=== PATIENT | female | born 1955 | race Caucasian/White ===

== ENCOUNTER 2017-08-24 09:37 | Inpatient (IN) | payer OTHER ==
[2017-08-24] VITALS (21 sets, daily range): BP systolic 98–132; BP diastolic 53–89; PULSE 59–88; RESP 13–28; Ht 165.1 cm; Wt 88.1 kg
[~2017-08-24] VITALS: Ht 165.1 cm; Wt 88.1 kg
[2017-08-24] MEDS ORDERED: HEPARIN 1000 UNITS/ML 10 ML INJ ONE (11:35)
[2017-08-24] MEDS ORDERED: BUPIVACAINE 0.5%/EPI (SDV) 30 ML INJ ONE (11:35)
[2017-08-24] MEDS ORDERED: THROMBIN 5000 UNIT VIAL ONE (11:35)
[2017-08-24] MEDS ORDERED: CA CHLORIDE 10% 10 ML SYRINGE ONE (11:35)
[2017-08-24] MEDS ORDERED: SURGIFOAM POWDER 1 GM KIT ONE (11:35)
[2017-08-24] MEDS ORDERED: CEFAZOLIN 1 GM INJ ONE ×2 (11:35→12:46)
--- NOTE | 2017-08-24 11:42 | HPN ---
Date/Time of Note Date/Time of Note DATE: 08/24/17 TIME: 11:42 Interval H&P Admission Note Pt. seen H&P reviewed: No system changes JASMYN PIEDRA MD Aug 24, 2017 11:42
[2017-08-24] MEDS ORDERED: MIDAZOLAM 1 MG/ML 2 ML INJ ONE (11:43)
[2017-08-24] MEDS ORDERED: ONDANSETRON 4 MG INJ IV PRN ×2 (12:00→13:00)
[2017-08-24] MEDS ORDERED: HYDROmorphONE 1 MG/ML SYG IV PRN ×2 (12:00→22:30)
[2017-08-24] MEDS ORDERED: ACETAMINOPHEN 325 MG TAB PO PRN (12:00)
[2017-08-24] MEDS ORDERED: AL HYDROX/MG HYDROX/SIMETH 30 ML CUP PO PRN (12:00)
[2017-08-24] MEDS ORDERED: BISACODYL 10 MG SUPP PR PRN (12:00)
[2017-08-24] MEDS ORDERED: HYDROmorphONE 0.2 MG/ML PCA IV SCH (12:00)
[2017-08-24] MEDS: CEFAZOLIN 1 GM/50 ML (PMX) 50 ML IVPB SCH ×2 (12:00→20:27)
[2017-08-24] MEDS ORDERED: DIPHENHYDRAMINE 25 MG CAP PO PRN (12:00)
[2017-08-24] MEDS ORDERED: DIPHENHYDRAMINE 50 MG INJ IV PRN ×2 (12:00→13:00)
[2017-08-24] MEDS ORDERED: CEPASTAT LOZENGE MT PRN (12:00)
[2017-08-24] MEDS ORDERED: NALOXONE (0.4 MG/ML) INJ IV PRN (12:00)
[2017-08-24] MEDS ORDERED: CYCLOBENZAPRINE 10 MG TAB PO PRN (12:00)
[2017-08-24] MEDS ORDERED: METOCLOPRAMIDE 10 MG INJ ONE (12:02)
[2017-08-24] MEDS ORDERED: FENTAnyl 50 MCG/ML VIAL ONE ×2 (12:02→13:50)
[2017-08-24] MEDS ORDERED: DEXAMETHASONE 4 MG/ML 1 ML INJ ONE (12:02)
[2017-08-24] MEDS ORDERED: SUCCINYLCHOLINE CHLORIDE 100 MG/5 ML SYG IV ONE (12:14)
[2017-08-24] MEDS ORDERED: PROPOFOL 20 ML ONE (12:14)
[2017-08-24] MEDS ORDERED: ROCURONIUM 50 MG INJ ONE ×2 (12:14→12:46)
[2017-08-24] MEDS ORDERED: HYDROmorphONE (0.2 MG/ML) 10ML SYG IV PRN ×3 (13:00)
[2017-08-24] MEDS ORDERED: MEPERIDINE 25 MG INJ IV PRN (13:00)
--- NOTE | 2017-08-24 13:02 | RADRPT ---
PROCEDURE: XR Lumbar Spine one view. CLINICAL INDICATION: Low back pain. Intraoperative. TECHNIQUE: Prone portable cross-table lateral. COMPARISON: No prior studies are available for comparison. FINDINGS: For the purposes of this report, the last apparent true disc level is considered to be L5-S1. Based on this, the posterior needle markers are present at the L3 spinous process level and upper S1 spin ous process level. IMPRESSION: 1. Intraoperative imaging as described above. RPTAT: QQ .Sarmad Campbell MD, Date Time Electronically viewed and signed by .Sarmad Campbell MD, on 08/24/2017 13:02 .R/
[2017-08-24] MEDS ORDERED: HYDROmorphONE 2 MG/ML SYG ONE (13:12)
--- NOTE | 2017-08-24 13:19 | RADRPT ---
PROCEDURE: XR Lumbar Spine one view. CLINICAL INDICATION: Low back pain. Intraoperative. TECHNIQUE: Prone portable cross-table lateral. COMPARISON: Prior study done earlier the same day. FINDINGS: For the purposes of this report, the last apparent true disc level is considered to be L5-S1. Based on this, the posterior surgical instruments are present at L4-5 and L5-S1. IMPRESSION: 1. Intraoperative imaging as described above. RPTAT: QQ .Sarmad Campbell MD, MD Date Time Electronically viewed and signed by .Sarmad Campbell MD, MD on 08/24/2017 13:18 .R/
[2017-08-24] MEDS ORDERED: BUPIVACAINE 0.25% (MPF) 10 ML 10 ML VIAL ONE (13:49)
[2017-08-24] MEDS ORDERED: NEOSTIGMINE 3 MG/3 ML SYRINGE ONE (14:21)
[2017-08-24] MEDS ORDERED: GLYCOPYRROLATE 0.4 MG INJ ONE (14:21)
--- NOTE | 2017-08-24 14:22 | SIPON ---
Date/Time of Note Date/Time of Note DATE: 08/24/17 TIME: 14:21 Operative Report Preoperative Diagnosis Lumbar stenosis Postoperative Diagnosis Lumbar stenosis Operation/Procedure Performed Lumbar decompression Surgeon see signature line pathology assistant Kimberley villatoro Anesthesia: general Estimated blood loss: 150 - 200 ml's Transfusion Required none Specimen spinous process Grafts/Implants none Complications none JASMYN PIEDRA MD Aug 24, 2017 14:22
[2017-08-24] MEDS ORDERED: HYDROmorphONE 0.2 MG/ML PCA ONE (14:23)
[2017-08-24] MEDS: 1/2 NS + KCL 20 MEQ 1,000 ML IV SCH ×2 (16:36→21:42)
--- NOTE | 2017-08-24 18:16 | OPR ---
DATE OF OPERATION: 08/24/2017 PREOPERATIVE DIAGNOSES: 1. L4-L5, L5-S1 stenosis. 2. Lumbosacral radiculopathy. POSTOPERATIVE DIAGNOSES: 1. L4-L5, L5-S1 stenosis. 2. Lumbosacral radiculopathy. OPERATIVE PROCEDURE: 1. Central decompressive laminectomy at L4-L5, L5-S1, decompression of L4, L5, S1 nerve roots bilaterally. 2. Lateral localizing film x2. 3. Epidural injection via catheter. 4. Intraoperative neuromonitoring (1.5 hours). PRIMARY SURGEON: Daryl Ivan MD BASKET GRADER: Kimberley Romero PA-C SOLE PAINTER: welder assistant was required to retract the neurovascular elements. OPERATIVE FINDINGS AT SURGERY: Neuromonitoring throughout the case revealed bilateral L4 and bilateral L5 amplitude down 40 percent, right S1 amplitude down 30 percent. At the end of the case, nerve signals returned to normal. Patient had stenosis from L4 to the sacrum. ESTIMATED BLOOD LOSS: 175 mL. DRAINS: 1. SPECIMENS: Spinous process. COMPLICATIONS: None. ANESTHESIOLOGIST: Eden Villa MD ANESTHESIA: General. INDICATION FOR PROCEDURE: This is a 62-year-old female with lumbosacral radiculopathy in the setting of stenosis. She has failed nonoperative measures. Therefore, I recommended proceeding with the above-mentioned surgery. Preoperatively discussed risks, benefits, and alternatives. She understood and wished to proceed. OPERATIVE PROCEDURE: Patient was identified in the preoperative holding area, given Ancef antibiotics, taken to the operating room, where she was successfully placed under general anesthesia. Neuromonitors were placed. Sequential compression devices were applied. Amaya catheter was introduced. Neuromonitoring was utilized during the procedure for 1.5 hours, to include SSEP, MEP, and EMG. This was performed by [email or web address]. Start time was 12:48 p.m. Closure time was 2:10 p.m. Patient was placed on the operating room table in the prone position on Surjit frame. All bony prominences were padded. The back was prepped and draped in usual sterile fashion. Spinal needles were used, and a lateral localizing film was obtained to confirm the correct levels. Next, I injected the skin with Marcaine and epinephrine. Incision was then made from L4 to the sacrum. Incision was taken down to the dorsal fascia, which was incised with Bovie cautery. I then subperiosteally dissected the laminae of L4, L5, and S1 bilaterally. Kerrisons were placed under the laminae, and a repeat lateral film obtained to confirm the correct levels. Once this was confirmed, I then performed a central decompressive laminectomy at L4-L5 and L5-S1 and decompressed the L4, L5 and S1 nerve roots bilaterally. I decompressed the central canal. I decompressed the lateral recess. Once this was done, all nerve signals returned to normal. I irrigated the wound. Hemostasis was achieved with Surgifoam and bipolar cautery. Bone wax was used on the bony edges. Valsalva maneuver was performed, and there was no leak of CSF. Epidural catheter was passed, through which I injected 100 mcg of fentanyl mixed with 2 mL of Marcaine 0.25 percent preservative-free, and the catheter was pulled. I injected PPP and thrombin over the dura for hemostatic purposes. Deep subfascial drain was placed, and I closed deep fascia with a number 1 Vicryl stitch. I then closed subcutaneous tissue with 2- 0 Vicryl stitch; 4-0 Monocryl closure was then performed. Dermabond and sterile dressings were then applied. The patient was then awakened from anesthesia and taken to recovery room in stable condition. Lap, sponge, and instrument counts were correct x2. There were no apparent complications during the procedure. Patient was admitted to [facility] for routine postoperative care to include pain control, antiemetics, antibiotics and physical therapy. Dictated By: Daryl Ivan MD /nohemi/simon /Document#: [id number]
[2017-08-24] MEDS ORDERED: ONDANSETRON 4 MG INJ ONE (22:09)
[2017-08-24] MEDS: DOCUSATE SODIUM 100 MG CAP PO SCH (22:15)
[2017-08-24] MEDS: ONDANSETRON 4 MG INJ IV PRN (22:21)
[2017-08-25 00:09] VITALS: BP 103/55; RESP 16
[2017-08-25 03:49] VITALS: BP 93/51; RESP 18
[2017-08-25] MEDS: 1/2 NS + KCL 20 MEQ 1,000 ML IV SCH ×2 (03:55→17:42)
[2017-08-25 05:16] LABS: BASOPHILS % 0.1 % (0.0-2.0); EOSINOPHILS % 0.1 % (0.0-7.0); HEMOGLOBIN 10.9 g/dl (12.0-16.0); LYMPHOCYTES # 2.1 10^3/ul (0.8-2.9); LYMPHOCYTES % 15.6 % (15.0-51.0); MEAN CORPUSCULAR HEMOGLOBIN 30.1 pg (29.0-33.0); MEAN CORPUSCULAR HGB CONC 32.1 g/dl (32.0-37.0); MEAN CORPUSCULAR VOLUME 93.9 fl (82.0-101.0); MONOCYTE # 1.3 10^3/ul (0.3-0.9); MONOCYTES % 9.2 % (0.0-11.0); NEUTROPHIL # 10.2 10^3/ul (1.6-7.5); NEUTROPHILS % 74.6 % (39.0-77.0); PLATELET COUNT 247 10^3/UL (140-415); RED BLOOD COUNT 3.62 10^6/ul (4.20-5.40); RED CELL DISTRIBUTION WIDTH 12.5 % (11.5-14.5); WHITE BLOOD COUNT 13.6 10^3/ul (4.8-10.8)
[2017-08-25] MEDS: CEFAZOLIN 1 GM/50 ML (PMX) 50 ML IVPB SCH (05:16)
--- NOTE | 2017-08-25 05:30 | CONS ---
DATE OF ADMISSION: 08/24/2017 DATE OF CONSULTATION: 08/24/2017 Thank you, Dr. Ivan for allowing us to participate medical management of this patient. REASON FOR CONSULTATION: To manage the patient's gastroesophageal reflux disease. HISTORY OF PRESENT ILLNESS: This 62-year-old female has been having low back pain with radiation into both buttocks and numb feeling in both feet and lateral aspect of the lower legs bilaterally. The patient was diagnosed as having L4, L5, and L5- S1 spinal stenosis. She underwent a lumbar decompression today at the L4, L5 level and the L5, S1 level by Dr. Ivan. The patient is awake and alert. She otherwise feels good. She denies any chest pain, or shortness of breath. PAST MEDICAL HISTORY: Remarkable for gastroesophageal reflux disease for which she took Nexium. PAST SURGICAL HISTORY: Two C- sections. SOCIAL HISTORY: She has never smoked cigarettes. ALLERGIES: SHE HAS NO KNOWN ALLERGIES. MEDICATION: She is not taking any medications at this time. PHYSICAL EXAMINATION: VITAL SIGNS: At this time reveals a well-developed female in no apparent distress. Pulse 64, respirations 18, blood pressure 98/54, O2 saturation 98 percent on 2 L nasal cannula. HEENT: Head normocephalic. Eyes, extraocular muscles intact. Nose and mouth are normal. NECK: Supple. No neck vein distention. LUNGS: Clear to auscultation. HEART: Regular rhythm. No murmurs, gallops, or rubs. ABDOMEN: Soft, nontender. EXTREMITIES: No peripheral edema. NEUROLOGIC: No obvious neurologic deficits. IMPRESSION: The patient is stable after surgery today. Her vital signs are acceptable. She has a history of gastroesophageal reflux disease for which she has taken Nexium. I will manage this for her. PLAN: 1. Resume some routine medications. 2. Check labs in the morning. 3. Postop lumbar spine surgery protocol. 4. I will follow the patient along with you medically. Dictated By: Abdon Beltran MD /nohemi/ /Document#: [id number]
[2017-08-25 05:34] LABS: CALCIUM 8.7 mg/dl (8.4-10.2); CREATININE 0.69 mg/dl (0.44-1.00); MAGNESIUM 1.8 mg/dl (1.7-2.5); POTASSIUM 4.7 mmol/L (3.5-5.1)
[2017-08-25] MEDS ORDERED: PANTOPRAZOLE 40 MG INJ IV SCH (06:00)
[2017-08-25 07:50] VITALS: BP 99/48; RESP 18
--- NOTE | 2017-08-25 08:19 | CONS ---
Date/Time of Note Date/Time of Note DATE: 08/25/17 TIME: 08:16 Assessment/Plan Assessment/Plan Additional Assessment/Plan 1. Doing well post op lumbar laminectomy. 2. Hx GERD, quiescent 3. Sl inc WBC, received Decadron ?, ua and cult to be obtained Consultation Date/Type/Reason Admit Date/Time Aug 24, 2017 at 09:37 Initial Consult Date Detailed Summary ENT: sore throat (is mild and no dysphagia) Respiratory: No shortness of breath, No wheezing Cardiovascular: No chest pain Gastrointestinal: other (mild bloating with indigestion) Genitourinary: other (bella in place) Musculoskeletal: back pain (mild) Exam/Review of Systems Vital Signs Vitals Vital Signs Date Time Temp Pulse Resp B/P Pulse Ox O2 Delivery O2 Flow Rate FiO2 08/25/17 07:50 98.1 71 18 99/48 96 08/24/17 19:00 Nasal Cannula 2.0 Intake and Output 08/24/17 08/24/17 08/25/17 15:00 23:00 07:00 Intake Total 1300 ml 290 ml 480 ml Output Total 525 ml 770 ml 1275 ml Balance 775 ml -480 ml -795 ml Exam Neck: No jvd Respiratory: clear to auscultation Cardiovascular: regular rate and rhythm Gastrointestinal: soft, No hepatomegaly Extremities: No edema (and no calf tend bilat) Results Result Diagram: 08/25/17 0443 08/25/173 Results 24 hrs Laboratory Tests Test 08/25/17 04:43 White Blood Count 13.6 H Red Blood Count 3.62 L Hemoglobin 10.9 L Hematocrit 34.0 L Mean Corpuscular Volume 93.9 Mean Corpuscular Hemoglobin 30.1 Mean Corpuscular Hemoglobin Concent 32.1 Red Cell Distribution Width 12.5 Platelet Count 247 Mean Platelet Volume 10.0 Neutrophils % 74.6 Lymphocytes % 15.6 Monocytes % 9.2 Eosinophils % 0.1 Basophils % 0.1 Nucleated Red Blood Cells % 0.0 Neutrophils # 10.2 H Lymphocytes # 2.1 Monocytes # 1.3 H Eosinophils # 0.0 Basophils # 0.0 Nucleated Red Blood Cells # 0.0 Sodium Level 140 Potassium Level 4.7 Chloride Level 106 Carbon Dioxide Level 29 Anion Gap 10 Blood Urea Nitrogen 10 Creatinine 0.69 Glucose Level 100 Calcium Level 8.7 Magnesium Level 1.8 Medications Medications Current Medications Potassium Chloride/Sodium Chloride (11/24 NS + KCl 20 Meq) 1,000 ml @ 100 mls/hr Q10H IV Last administered on 08/25/17 03:55; Admin Dose 100 MLS/HR; Start 08/24/17 at 11:42 Acetaminophen/ Hydrocodone Bitart ([place] (10/325)) 1 tab Q4H PRN PO PAIN LEVEL 1-5; Start 08/25/17 at 09:30 Acetaminophen/ Hydrocodone Bitart ([place] (10/325)) 2 tab Q4H PRN PO PAIN LEVEL 6-10; Start 08/25/17 at 09:30 Bisacodyl (Dulcolax Supp) 10 mg DAILY PRN [place] CONSTIPATION; Start 08/24/17 at 12 :00 Docusate Sodium (Colace) 100 mg BID PO ; Start 08/24/17 at 21:00 Pantoprazole (Protonix Iv) 40 mg DAILY@06 IV Last administered on 08/25/17 05: 16; Admin Dose 40 MG; Start 08/25/17 at 06:00 Al Hydrox/Mg Hydrox/Simethicone (Mag-Al Plus) 15 ml Q6H PRN PO CONSTIPATION/ DYSPEPSIA; Start 08/24/17 at 12:00 Acetaminophen (Tylenol Tab) 650 mg Q4H PRN PO ARAMBULA OR TEMP GREATER THAN 101.3F; Start 08/24/17 at 12:00 Cyclobenzaprine HCl (Flexeril) 10 mg TID PRN PO MUSCLE SPASMS; Start 08/24/17 at 12:00 Phenol (Cepastat Lozenge) 1 lozenge PRN PRN [place] SORE THROAT Last administered on 08/24/17 18:28; Admin Dose 1 LOZENGE; Start 08/24/17 at 12:00 Diphenhydramine HCl (Benadryl) 25 mg Q6H PRN PO ITCHING; Start 08/24/17 at 12: 00 Hydromorphone HCl (Dilaudid CHAIRMAN) CHAIRMAN to be started in PACU Q4PCA IV Last administered on 08/24/17 14:45; Admin Dose 6 MG; Start 08/24/17 at 12:00; Stop 08/25/17 at 10:00 Miscellaneous Information 1. Hold CHAIRMAN at 1,000... CHAIRMAN IV ; Start 08/24/17 at 12: 00 Hydromorphone HCl (Dilaudid) 0.2 mg Q1H PRN IV BREAKTHROUGH PAIN; Start at 22:30 Ondansetron HCl (Zofran Inj) 4 mg Q6H PRN IV NAUSEA AND/OR VOMITING Last administered on 08/24/17t 22:21; Admin Dose 4 MG; Start 08/24/17 at 22:30 CHERIE FRANCISCO MD Aug 25, 2017 08:19
[2017-08-25] MEDS: DOCUSATE SODIUM 100 MG CAP PO SCH ×2 (08:21→21:37)
[2017-08-25] MEDS: HYDROCODONE/APAP (10/325) TAB PO PRN ×3 (09:29→18:40)
[2017-08-25] MEDS: ONDANSETRON 4 MG INJ IV PRN ×2 (10:40→18:40)
--- NOTE | 2017-08-25 11:02 | PN ---
Date/Time of Note Date/Time of Note DATE: 08/25/17 TIME: 11:01 Assessment/Plan Lines/Catheters IV Catheter Type (from Nrsg): Peripheral IV Amaya in Place (from Nrsg): Yes Assessment/Plan Assessment/Plan Status post lumbar decompression DC BOILER HELPER and Amaya Monitor blood pressure Continue with the drain and physical therapy Subjective 24 Hr Interval Summary Complains of back pain Minimal leg pain Exam/Review of Systems Vital Signs Vitals Vital Signs Date Time Temp Pulse Resp B/P Pulse Ox O2 Delivery O2 Flow Rate FiO2 08/25/17 07:50 98.1 71 18 99/48 96 08/24/17 19:00 Nasal Cannula 2.0 Intake and Output 08/24/17 08/24/17 08/25/17 15:00 23:00 07:00 Intake Total 1300 ml 290 ml 480 ml Output Total 525 ml 770 ml 1275 ml Balance 775 ml -480 ml -795 ml Exam Free Text/Dictation Neurovascularly intact Results Result Diagram: 08/25/17 0443 08/25/17 0443 JASMYN PIEDRA MD Aug 25, 2017 11:02
[2017-08-25 12:27] LABS: ADD UMIC YES; UR ASCORBIC ACID NEGATIVE (NEGATIVE); UR BILIRUBIN (Dip) NEGATIVE (NEGATIVE); UR BLOOD (Dip) 2+ mg/dL (NEGATIVE); UR CLARITY CLEAR (CLEAR); UR COLOR YELLOW (YELLOW); UR GLUCOSE (Dip) NEGATIVE (NEGATIVE); UR KETONES (Dip) NEGATIVE (NEGATIVE); UR LEUKOCYTE ESTERASE (Dip) NEGATIVE Leu/ul (NEGATIVE); UR MUCUS FEW /HPF (NONE SEEN); UR NITRITE (Dip) NEGATIVE (NEGATIVE); UR RBC 8 /HPF (0-5); UR SPECIFIC GRAVITY (Dip) 1.016 (1.003-1.030); UR TOTAL PROTEIN (Dip) NEGATIVE (NEGATIVE); UR UROBILINOGEN (Dip) NEGATIVE (NEGATIVE)
[2017-08-25] MEDS ORDERED: MAGNESIUM HYDROXIDE 30ML CUP PO PRN (19:30)
[2017-08-25 20:26] VITALS: BP 98/54; RESP 20
[2017-08-26] MEDS ORDERED: ACETAMINOPHEN 325 MG TAB ONE (00:27)
[2017-08-26] MEDS: ONDANSETRON 4 MG INJ IV PRN ×3 (00:33→18:45)
[2017-08-26 01:00] VITALS: BP 107/58; RESP 20
[2017-08-26] MEDS: HYDROCODONE/APAP (10/325) TAB PO PRN ×5 (02:53→22:47)
[2017-08-26 02:57] VITALS: BP 108/60; PULSE 91; RESP 18
[2017-08-26] MEDS: PANTOPRAZOLE (EC) 40 MG TAB PO SCH (05:15)
[2017-08-26] MEDS: 1/2 NS + KCL 20 MEQ 1,000 ML IV SCH ×3 (05:19→23:42)
[2017-08-26 05:22] LABS: BASOPHIL # 0.1 10^3/ul (0.0-0.1); BASOPHILS % 0.4 % (0.0-2.0); EOSINOPHILS # 0.1 10^3/ul (0.0-0.5); EOSINOPHILS % 0.6 % (0.0-7.0); HEMATOCRIT 32.5 % (37.0-47.0); HEMOGLOBIN 10.3 g/dl (12.0-16.0); LYMPHOCYTES # 3.4 10^3/ul (0.8-2.9); LYMPHOCYTES % 26.7 % (15.0-51.0); MEAN CORPUSCULAR HEMOGLOBIN 30.3 pg (29.0-33.0); MEAN CORPUSCULAR HGB CONC 31.7 g/dl (32.0-37.0); MEAN CORPUSCULAR VOLUME 95.6 fl (82.0-101.0); MEAN PLATELET VOLUME 10.2 fl (7.4-10.4); MONOCYTE # 1.1 10^3/ul (0.3-0.9); MONOCYTES % 8.9 % (0.0-11.0); NEUTROPHIL # 7.9 10^3/ul (1.6-7.5); PLATELET COUNT 216 10^3/UL (140-415); RED CELL DISTRIBUTION WIDTH 12.8 % (11.5-14.5); WHITE BLOOD COUNT 12.6 10^3/ul (4.8-10.8)
[2017-08-26 05:44] LABS: CALCIUM 8.7 mg/dl (8.4-10.2); CREATININE 0.87 mg/dl (0.44-1.00); MAGNESIUM 1.9 mg/dl (1.7-2.5); POTASSIUM 4.6 mmol/L (3.5-5.1)
[2017-08-26 08:00] VITALS: BP_SYST 107; BP_SYST 116; BP_DIAS 55; BP_DIAS 59; RESP 18
--- NOTE | 2017-08-26 08:39 | CONS ---
Date/Time of Note Date/Time of Note DATE: 08/26/17 TIME: 08:34 Assessment/Plan Assessment/Plan Additional Assessment/Plan 1. Doing well post op lumbar back surgery 2. ARAMBULA, ? sec to anesthesia, pain meds, can observe today and Rx empirically with Fioricet. 3. Labs rec, wbc is better, urine cult is neg 4. Can dc if ok with ortho and pt Consultation Date/Type/Reason Admit Date/Time Aug 24, 2017 at 09:37 Detailed Summary Respiratory: cough (that is not productive), No shortness of breath Cardiovascular: No chest pain, No lightheadedness Gastrointestinal: no complaints Genitourinary: no complaints Neurologic: focal-weakness, headache (is mild, left frontal intermittent with ? sl blurry vision and occ double vision) Exam/Review of Systems Vital Signs Vitals Vital Signs Date Time Temp Pulse Resp B/P Pulse Ox O2 Delivery O2 Flow Rate FiO2 08/26/17 08:00 98.0 93 18 107/59 98 08/26/17 02:57 Room Air 08/24/17 19:00 2.0 Intake and Output 08/25/17 08/25/17 08/26/17 14:59 22:59 06:59 Intake Total 1900 ml 1000 ml Output Total 760 ml 1330 ml Balance 1140 ml -330 ml Exam Eyes: EOMI Neck: No jvd Respiratory: clear to auscultation Cardiovascular: regular rate and rhythm Gastrointestinal: soft Extremities: No edema (and no calf tend) Neurological: No focal weakness Results Result Diagram: 08/26/17 0434 08/26/17 0434 Results 24 hrs Laboratory Tests Test 08/25/17 09:20 08/26/17 04:34 Urine Color YELLOW Urine Clarity CLEAR Urine pH 5.0 Urine Specific [place] 1.016 Urine Ketones NEGATIVE Urine Nitrite NEGATIVE Urine Bilirubin NEGATIVE Urine Urobilinogen NEGATIVE Urine Leukocyte Esterase NEGATIVE Urine Microscopic RBC 8 H Urine Microscopic WBC 1 Urine Mucus FEW A Urine Hemoglobin 2+ H Urine Glucose NEGATIVE Urine Total Protein NEGATIVE White Blood Count 12.6 H Red Blood Count 3.40 L Hemoglobin 10.3 L Hematocrit 32.5 L Mean Corpuscular Volume 95.6 Mean Corpuscular Hemoglobin 30.3 Mean Corpuscular Hemoglobin Concent 31.7 L Red Cell Distribution Width 12.8 Platelet Count 216 Mean Platelet Volume 10.2 Neutrophils % 63.0 Lymphocytes % 26.7 Monocytes % 8.9 Eosinophils % 0.6 Basophils % 0.4 Nucleated Red Blood Cells % 0.0 Neutrophils # 7.9 H Lymphocytes # 3.4 H Monocytes # 1.1 H Eosinophils # 0.1 Basophils # 0.1 Nucleated Red Blood Cells # 0.0 Sodium Level 139 Potassium Level 4.6 Chloride Level 105 Carbon Dioxide Level 30 Anion Gap 9 Blood Urea Nitrogen 8 Creatinine 0.87 Glucose Level 105 Calcium Level 8.7 Magnesium Level 1.9 Medications Medications Current Medications Potassium Chloride/Sodium Chloride (11/24 NS + KCl 20 Meq) 1,000 ml @ 100 mls/hr Q10H IV Last administered on 08/26/17 05:19; Admin Dose 100 MLS/HR; Start 08/24/17 at 11:42 Acetaminophen/ Hydrocodone Bitart ([place] (10/325)) 1 tab Q4H PRN PO PAIN LEVEL 1-5 Last administered on 08/26/17 02:53; Admin Dose 1 TAB; Start 08/25/17 at 09 :30 Acetaminophen/ Hydrocodone Bitart ([place] (10/325)) 2 tab Q4H PRN PO PAIN LEVEL 6-10 Last administered on 08/25/17 18:40; Admin Dose 2 TAB; Start 08/25/17 at 09:30 Bisacodyl (Dulcolax Supp) 10 mg DAILY PRN [place] CONSTIPATION; Start 08/24/17 at 12 :00 Docusate Sodium (Colace) 100 mg BID PO Last administered on 08/25/17 21:37; Admin Dose 100 MG; Start 08/24/17 at 21:00 Al Hydrox/Mg Hydrox/Simethicone (Mag-Al Plus) 15 ml Q6H PRN PO CONSTIPATION/ DYSPEPSIA; Start 08/24/17 at 12:00 Acetaminophen (Tylenol Tab) 650 mg Q4H PRN PO ARAMBULA OR TEMP GREATER THAN 101.3F Last administered on 08/26/17 00:31; Admin Dose 650 MG; Start 08/24/17 at 12:00 Cyclobenzaprine HCl (Flexeril) 10 mg TID PRN PO MUSCLE SPASMS; Start 08/24/17 at 12:00 Phenol (Cepastat Lozenge) 1 lozenge PRN PRN MT SORE THROAT Last administered on 08/24/17 18:28; Admin Dose 1 LOZENGE; Start 08/24/17 at 12:00 Diphenhydramine HCl (Benadryl) 25 mg Q6H PRN PO ITCHING; Start 08/24/17 at 12: 00 Miscellaneous Information 1. Hold DESULFURIZER MACHINE at 1,000... DESULFURIZER MACHINE IV ; Start 08/24/17 at 12: 00 Hydromorphone HCl (Dilaudid) 0.2 mg Q1H PRN IV BREAKTHROUGH PAIN; Start at 22:30 Ondansetron HCl (Zofran Inj) 4 mg Q6H PRN IV NAUSEA AND/OR VOMITING Last administered on 08/26/17 00:33; Admin Dose 4 MG; Start 08/24/17 at 22:30 Pantoprazole (Protonix Tab) 40 mg DAILY@06 PO Last administered on 08/26/17 05 :15; Admin Dose 40 MG; Start 08/26/17 at 06:00 Magnesium Hydroxide (Milk Of Mag) 30 ml BID PRN PO CONSTIPATION; Start at 19:30 CHERIE FRANCISCO MD Aug 26, 2017 08:39
[2017-08-26] MEDS ORDERED: ACET/BUTAL/CAFF TAB PO PRN (09:00)
[2017-08-26] MEDS: DOCUSATE SODIUM 100 MG CAP PO SCH ×2 (09:08→22:47)
--- NOTE | 2017-08-26 10:47 | PN ---
Date/Time of Note Date/Time of Note DATE: 08/26/17 TIME: 10:46 Assessment/Plan Lines/Catheters IV Catheter Type (from Nrsg): Peripheral IV Amaya in Place (from Nrsg): Yes Assessment/Plan Assessment/Plan Postop day 2 status post lumbar decompression. The patient is feeling better. Drain was removed. She still has some dizziness. We will continue with physical therapy. Subjective 24 Hr Interval Summary Complains of dizziness Exam/Review of Systems Vital Signs Vitals Vital Signs Date Time Temp Pulse Resp B/P Pulse Ox O2 Delivery O2 Flow Rate FiO2 08/26/17 08:00 98.0 93 18 107/59 98 08/26/17 02:57 Room Air 08/24/17 19:00 2.0 Intake and Output 08/25/17 08/25/17 08/26/17 15:00 23:00 07:00 Intake Total 1900 ml 1000 ml Output Total 760 ml 1330 ml Balance 1140 ml -330 ml Exam Free Text/Dictation Neurovascularly intact Results Result Diagram: 08/26/17 0434 08/26/17 0434 JASMYN PIEDRA MD Aug 26, 2017 10:47
[2017-08-26 12:52] VITALS: BP 91/54; RESP 18
[2017-08-26 21:47] VITALS: BP 84/46; RESP 18
[2017-08-26 22:00] VITALS: BP 98/54
[2017-08-27 02:20] VITALS: BP 104/59; PULSE 57; RESP 17
[2017-08-27 05:20] LABS: BASOPHIL # 0.1 10^3/ul (0.0-0.1); BASOPHILS % 0.5 % (0.0-2.0); EOSINOPHILS # 0.1 10^3/ul (0.0-0.5); EOSINOPHILS % 1.3 % (0.0-7.0); HEMATOCRIT 32.5 % (37.0-47.0); HEMOGLOBIN 10.2 g/dl (12.0-16.0); LYMPHOCYTES # 2.6 10^3/ul (0.8-2.9); LYMPHOCYTES % 24.5 % (15.0-51.0); MEAN CORPUSCULAR HEMOGLOBIN 29.7 pg (29.0-33.0); MEAN CORPUSCULAR HGB CONC 31.4 g/dl (32.0-37.0); MEAN CORPUSCULAR VOLUME 94.5 fl (82.0-101.0); MEAN PLATELET VOLUME 10.1 fl (7.4-10.4); MONOCYTE # 1.1 10^3/ul (0.3-0.9); MONOCYTES % 10.6 % (0.0-11.0); NEUTROPHIL # 6.7 10^3/ul (1.6-7.5); NEUTROPHILS % 62.8 % (39.0-77.0); PLATELET COUNT 228 10^3/UL (140-415); RED BLOOD COUNT 3.44 10^6/ul (4.20-5.40); RED CELL DISTRIBUTION WIDTH 12.6 % (11.5-14.5); WHITE BLOOD COUNT 10.7 10^3/ul (4.8-10.8)
[2017-08-27] MEDS: PANTOPRAZOLE (EC) 40 MG TAB PO SCH (05:22)
[2017-08-27] MEDS: HYDROCODONE/APAP (10/325) TAB PO PRN ×3 (05:22→14:04)
[2017-08-27] MEDS: ONDANSETRON 4 MG INJ IV PRN (05:23)
[2017-08-27 05:48] LABS: CALCIUM 8.9 mg/dl (8.4-10.2); CREATININE 0.78 mg/dl (0.44-1.00); POTASSIUM 4.8 mmol/L (3.5-5.1)
[2017-08-27 07:44] VITALS: BP 101/59; RESP 19
[2017-08-27 09:16] VITALS: BP 107/65; PULSE 72; RESP 18
[2017-08-27] MEDS: DOCUSATE SODIUM 100 MG CAP PO SCH (09:19)
[2017-08-27] MEDS: 1/2 NS + KCL 20 MEQ 1,000 ML IV SCH (09:42)
--- NOTE | 2017-08-27 09:47 | CONS ---
Date/Time of Note Date/Time of Note DATE: 08/27/17 TIME: 09:45 Assessment/Plan Assessment/Plan Additional Assessment/Plan 1. Doing well post op lumbar back surg 2. O2 level was 88-89% last night and 90% this am I think related to atelectasis , will check again this am and if >90% ok to dc, rev with pt and 3. Labs rev Consultation Date/Type/Reason Admit Date/Time Aug 24, 2017 at 09:37 Detailed Summary Respiratory: No cough, No shortness of breath Cardiovascular: No chest pain Gastrointestinal: no complaints Genitourinary: no complaints Musculoskeletal: back pain (mild-mod) Exam/Review of Systems Vital Signs Vitals Vital Signs Date Time Temp Pulse Resp B/P Pulse Ox O2 Delivery O2 Flow Rate FiO2 08/27/17 09:16 72 18 107/65 92 Room Air 08/27/17 07:44 99.0 08/27/17 02:20 2.0 Intake and Output 08/26/17 08/26/17 08/27/17 15:00 23:00 07:00 Intake Total 185 ml 1480 ml Balance 185 ml 1480 ml Exam Neck: No jvd Respiratory: clear to auscultation Cardiovascular: regular rate and rhythm Gastrointestinal: soft Extremities: No edema (and no calf tend) Results Result Diagram: 08/27/17 0445 08/27/175 Results 24 hrs Laboratory Tests Test 08/27/17 04:45 White Blood Count 10.7 Red Blood Count 3.44 L Hemoglobin 10.2 L Hematocrit 32.5 L Mean Corpuscular Volume 94.5 Mean Corpuscular Hemoglobin 29.7 Mean Corpuscular Hemoglobin Concent 31.4 L Red Cell Distribution Width 12.6 Platelet Count 228 Mean Platelet Volume 10.1 Neutrophils % 62.8 Lymphocytes % 24.5 Monocytes % 10.6 Eosinophils % 1.3 Basophils % 0.5 Nucleated Red Blood Cells % 0.0 Neutrophils # 6.7 Lymphocytes # 2.6 Monocytes # 1.1 H Eosinophils # 0.1 Basophils # 0.1 Nucleated Red Blood Cells # 0.0 Sodium Level 140 Potassium Level 4.8 Chloride Level 103 Carbon Dioxide Level 34 H Anion Gap 8 Blood Urea Nitrogen 7 Creatinine 0.78 Glucose Level 116 Calcium Level 8.9 Magnesium Level 2.0 Medications Medications Current Medications Potassium Chloride/Sodium Chloride (1/2 NS + KCl 20 Meq) 1,000 ml @ 100 mls/hr Q10H IV Last administered on 08/26/17 05:19; Admin Dose 100 MLS/HR; Start 08/24/17 at 11:42 Acetaminophen/ Hydrocodone Bitart ([place] (10/325)) 1 tab Q4H PRN PO PAIN LEVEL 1-5 Last administered on 08/27/17 09:19; Admin Dose 1 TAB; Start 08/25/17 at 09 :30 Acetaminophen/ Hydrocodone Bitart ([place] (10/325)) 2 tab Q4H PRN PO PAIN LEVEL 6-10 Last administered on 08/26/17 22:47; Admin Dose 2 TAB; Start 08/25/17 at 09:30 Bisacodyl (Dulcolax Supp) 10 mg DAILY PRN [place] CONSTIPATION; Start 08/24/17 at 12 :00 Docusate Sodium (Colace) 100 mg BID PO Last administered on 08/27/17 09:19; Admin Dose 100 MG; Start 08/24/17 at 21:00 Al Hydrox/Mg Hydrox/Simethicone (Mag-Al Plus) 15 ml Q6H PRN PO CONSTIPATION/ DYSPEPSIA; Start 08/24/17 at 12:00 Acetaminophen (Tylenol Tab) 650 mg Q4H PRN PO ARAMBULA OR TEMP GREATER THAN 101.3F Last administered on 08/26/17 00:31; Admin Dose 650 MG; Start 08/24/17 at 12:00 Cyclobenzaprine HCl (Flexeril) 10 mg TID PRN PO MUSCLE SPASMS; Start 08/24/17 at 12:00 Phenol (Cepastat Lozenge) 1 lozenge PRN PRN MT SORE THROAT Last administered on 08/24/17 18:28; Admin Dose 1 LOZENGE; Start 08/24/17 at 12:00 Diphenhydramine HCl (Benadryl) 25 mg Q6H PRN PO ITCHING; Start 08/24/17 at 12: 00 Miscellaneous Information 1. Hold WASTE REMOVALIST at 1,000... WASTE REMOVALIST IV ; Start 08/24/17 at 12: 00 Hydromorphone HCl (Dilaudid) 0.2 mg Q1H PRN IV BREAKTHROUGH PAIN; Start at 22:30 Ondansetron HCl (Zofran Inj) 4 mg Q6H PRN IV NAUSEA AND/OR VOMITING Last administered on 08/27/17 05:23; Admin Dose 4 MG; Start 08/24/17 at 22:30 Pantoprazole (Protonix Tab) 40 mg DAILY@06 PO Last administered on 08/27/17 05 :22; Admin Dose 40 MG; Start 08/26/17 at 06:00 Magnesium Hydroxide (Milk Of Mag) 30 ml BID PRN PO CONSTIPATION; Start at 19:30 Acetaminophen/ Butalbital/ Caffeine (Fioricet) 1 tab Q6H PRN PO PAIN Last administered on 08/26/17 10:57; Admin Dose 1 TAB; Start 08/26/17 at 09:00 CHERIE FRANCISCO MD Aug 27, 2017 09:47
--- NOTE | 2017-08-28 08:29 | DS ---
DATE OF ADMISSION: 08/24/2017 DATE OF DISCHARGE: 08/27/2017 ADMITTING DIAGNOSIS: Lumbar stenosis. DISCHARGE DIAGNOSIS: Lumbar stenosis. PROCEDURE: Patient taken to the operating room on 08/24/2017 and underwent lumbar decompression. HOSPITAL COURSE: The patient was admitted to the [facility] after undergoing the above procedu re. On postoperative day 1 and 2 she had dizziness with low blood pressure. She decreased her medi cation intake, this improved and by postoperative day #3, she was doing well. She was deemed stable for discharge with followup arranged with the undersigned. Dictated By: JASMYN CHAUDHARI/GRANT Conf#: [id number] DID#: [id number]
== END 2017-08-27 15:35 | disposition home health service (06) | DRG 517 ==
LOC: REC 09:37 → EDSTATUS 12:00 → MS1 15:30
PROVIDERS: ADMIT Specialist; ATTEND Specialist
PROC: 4A11X4G Monitoring of Peripheral Nervous Electrical Activity, Intraoperative, External Approach (ICD-10-PCS; 2017-08-24)
PROC: 01NB0ZZ Release Lumbar Nerve, Open Approach (ICD-10-PCS; principal; 2017-08-24 12:00)
DX: M48.061 Spinal stenosis, lumbar region without neurogenic claudication (principal); M48.07 Spinal stenosis, lumbosacral region; K21.9 Gastro-esophageal reflux disease without esophagitis; R51 Headache
CPT/HCPCS: 72020; 80048; 81001; 83735; 85025; 86850; 86900; 86901; 86920; 86999; 87086; 97116; 97162; 97530; C9113; J0690; J1100; J1170; J1644; J2175; J2250; J2405; J2710; J2765; J3010; J3480; J7999